=== PATIENT | female | born 1935 | race Caucasian/White ===

== ENCOUNTER 2023-12-05 13:34 | Outpatient (AMB) | payer MEDICARE, SELFPAY ==
--- NOTE | 2023-12-05 13:46 | HO.SPINEOV ---
Intake Visit Reasons: low back pain Intake Note: Ms. Rodriguez is here today c/o low back pain. Information Manager Required: No Assessment & Plan Assessment & Plan (1) Compression fracture of L2: Code(s): S32.020A - Wedge compression fracture of second lumbar vertebra, initial encounter for closed fracture Category: Medical Plan Dear Dr Taylor, Thank you for referring Mrs Rodriguez to our office today. 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 For about the last 7 -8 months she has had an intense pain in her lower lumbar spine that is associated with pain down the front of her legs in the back of her legs. When it initially happened, she went to [facility], was told she had a compression fracture and that it should heal on its own and was really nothing more to do for it. Ultimately she ended up going to the [facility] a few months into the process of healing because the pain did not go away. At that visit, she was also told that there was nothing more she could do other than just to continue to wait it out. 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 She referred to us for evaluation. She has trialed medications like Tylenol, Motrin and gabapentin. There maybe some mild relief but nothing really helps it. The pain is worse when she is sitting but also is aggravated with standing walking. The leg pain in the back pain will come on together. She has pain in her legs at night as well but it is not as bad as the pain during the day. Denies any issues with cauda equina symptoms. PMH: she has both knees replaced, aortic valve replaced, cataract surgery both eyes, hypertension, GERD Social hx: She has not smoke, drink use any recreational drugs Medications: Calcium, iron, amiodarone, gabapentin, baby aspirin, senna, atorvastatin, vitamin-C, potassium, pantoprazole, senna, tramadol, atorvastatin, potassium Allergies: Denies any drug allergies Physical exam: Frail appearing no acute distress, she has pain with movement of her legs but no focal motor deficits. Reflexes are 3+ on the left, 2+ on the right. No clonus in the ankles. Imaging review: She has a lumbar MRI done at [facility] showing a severely collapsed L2 vertebral body, vertebrae planum. There is some retropulsion of the the bone fragment or part of the disc causing moderate to severe central canal stenosis. There other degenerative changes seen lumbar spine. Impression: 88-year-old female history of osteoporosis, was bending forward to lease picker a box about 7 or 8 months ago presents with acute L2 compression fracture [facility]. Unfortunately the pain has never gone away. She now also has pain going down her legs. I do not have the original imaging from [facility], but it sounds like the compression fracture has continued to deteriorate over time. What we are seeing now the MRI may not be what was on the imaging back in April when this initially happened. I am going to send her for standing x-rays. Based on the anatomy right now I do not think it is going to be a kyphoplasty as an option given the lack of vertebral body. I do not think a brace is going to be especially helpful. Thankfully, her legs are not weak although she does have stenosis like symptoms with pain in the legs with walking. Once I have a chance review everything with Dr. Hannon I will get back to patient with a final plan. The patient has clear about the fact that she does not wish to entertain any kind of procedure if it would in any way shape performed possibly make her worse than what she has right now. Although pain is limiting her, she is able to navigate around her home and it is very important to her that she not be left disabled from any procedure that would be attempted. This seems like a very reasonable perspective. Thank you for allowing us to care for your patient. The total time spent with this visit with this patient was 45 minutes reviewing history, physical exam, lumbar imaging review, and implementation of treatment plan or further diagnostic testing Julian Hannon MD,PhD [facility] Orders: Orders XR lumbar spine 4V min Today S32.020A - Wedge compression fracture of second lumbar vertebra, initial encounter for closed fracture Coding Level of Care Code New Pt Level 4 (02558) Diagnoses Compression fracture of L2 S32.020A
== END 2023-12-05 14:07 | disposition home or self-care (01) ==
PROVIDERS: PCP Nurse Practitioner Family; Referring Provider Physician Assistant; Visit Provider Physician Assistant
DX: S32.020A Wedge compression fracture of second lumbar vertebra, initial encounter for closed fracture (principal)
CPT/HCPCS: 99204

== ENCOUNTER 2023-12-05 13:34 | Outpatient (REF) | payer MEDICARE, SELFPAY ==
--- NOTE | ~2023-12-05 | XR_ITS ---
EXAMINATION: XR LUMBOSACRAL SPINE WITH OBLIQUES CLINICAL INFORMATION: Wedge compression fracture of second lumbar vertebra. COMPARISON: None available. TECHNIQUE: 4 views including AP, lateral neutral, flexion and extension views of the lumbar spine FINDINGS: The bones are diffusely demineralized. Degenerative changes in bilateral sacroiliac joints. Mild rightward curvature of the [id number] lumbar spine. Facet arthritis in the [id number] lumbar spine. 7 mm sclerotic focus overlying the upper aspect of the sacrum on the right. Severe compression deformity of L2 vertebral body of indeterminant age and etiology. Advanced multilevel degenerative changes in the lumbar spine with loss of disc space height loss at about L2-L3, L3-L4, and L4-L5. Minimal grade 1 retrolisthesis of L3 on L4, and of L4 and L5 with flexion and extension. Severe grade 1 anterolisthesis of L5 on S1 with flexion and extension. XR/XR lumbar spine 4V min IMPRESSION: 1. Severe compression deformity of L2 vertebral body of indeterminate age and etiology. 2. Advanced multilevel lumbar spondylosis as detailed above. 3. Bones are diffusely demineralized
== END 2023-12-05 13:35 | disposition home or self-care (01) ==
LOC: HO.HOSX 13:34
PROVIDERS: PCP Nurse Practitioner Family; Visit Provider Physician Assistant
DX: S32.020A Wedge compression fracture of second lumbar vertebra, initial encounter for closed fracture (principal); X58.XXXA Exposure to other specified factors, initial encounter; Y93.9 Activity, unspecified; Y92.9 Unspecified place or not applicable; Y99.9 Unspecified external cause status
CPT/HCPCS: 72110; 99202